=== PATIENT | male | born 1960 | race Caucasian/White ===

== ENCOUNTER 2023-11-09 06:02 | Emergency (ER) | payer OTHER ==
[2023-11-09 06:10] VITALS: BP 109/65; PULSE 68; RESP 16; TEMP 98.1; BMI 29.5
== END 2023-11-09 07:08 | disposition home or self-care (01) ==
LOC: JER 06:02
DX: M25.569 Pain in unspecified knee (principal); R45.1 Restlessness and agitation
CPT/HCPCS: 99283-25

== ENCOUNTER 2023-11-10 01:41 | Emergency (ER) | payer OTHER ==
[2023-11-10 01:50] VITALS: BP 127/76; PULSE 79; RESP 20; TEMP 99.1; BMI 33.2
[2023-11-10] MEDS ORDERED: ACETAMINOPHEN 500 MG TABLET (FP) ONE (02:24)
[2023-11-10] MEDS: ACETAMINOPHEN 500 MG TABLET (FP) PO ONE (02:33)
== END 2023-11-10 02:53 | disposition home or self-care (01) ==
LOC: JER 01:41
DX: M25.562 Pain in left knee (principal)
CPT/HCPCS: 73562-TC-LT-FY; 99283-25